=== PATIENT | male | born 1980 | race Caucasian/White ===

== ENCOUNTER 2016-12-27 23:10 | Emergency (ER) | payer SELFPAY ==
[2016-12-28] MEDS ORDERED: NS 0.9% 1000 ML* 2,000 ML IV ONE (00:17)
--- NOTE | 2016-12-28 00:18 | ED ---
GI/ HPI - HPI Summary HPI Summary: 36 male presents to ED with complaints of left sided lower abdominal pain and flank pain that began yesterday and really worsened today around 11pm tonight. Patient states pain is mostly a dull ache 8/10 that worsens causing him to double over at times and up to 10/10. Patient states he was unable to urinate x 4 hours, also experienced pain with attempting to urinate. Was able to give small sample while in ED. Denies obvious blood. Normal bowel movement without blood. No fever/chills. Did have a low left sided back ache yesterday however moved to his flank and left suprapubic area today, worsening. No known trauma or injury. Denies nausea and vomiting. Admits to history of kidney stones 1 year ago and states this feels the exact same. No medications [employer]. No PMHx. Denies genitalia symptoms. - History of Current Complaint Chief Complaint: EDFlankPain Time Seen by Provider: 12/28/16 00:13 Stated Complaint: FLANK PAIN Hx Obtained From: Patient Onset/Duration: Started Days Ago - 1, Still Present, Worse Since Timing: Constant, Intermittent - worsening at times Severity: Moderate Current Severity: Severe Pain Intensity: 10 Location of Pain: LLQ, Suprapubic, Flank - left Pain Characteristics: Sharp, Colicy, Tearing, Aching Pain Radiates to: Flank, RLQ, Inguinal Associated Signs and Symptoms: Positive: Back Pain, Dysuria, Flank Pain Additional Signs & Symptoms: Negative: Penile Swelling, Penile Discharge, Lesions Aggravating Factor(s): Voiding, Urination Alleviating Factor(s): Nothing, Position - sitting up helps somewhat - Images Male Torso: 1 - pain - Risk Factors GI Bleed Risk Factor(s): Negative Testicular Torsion Risk Factor(s): Negative - Allergy/Home Medications Allergies/Adverse Reactions: Allergies Allergy/AdvReac Type Severity Reaction Status Date / Time No Known Allergies Allergy Verified 12/27/16 23:17 PMH/Surg Hx/FS Hx/Imm Hx Endocrine/Hematology History: Denies: Hx Anticoagulant Therapy, Hx Diabetes, Hx Thyroid Disease Cardiovascular History: Denies: Hx Hypertension, Hx Pacemaker/ICD Respiratory History: Denies: Hx Asthma, Hx Chronic Obstructive Pulmonary Disease (COPD) History: Denies: Hx Renal Disease Neurological History: Denies: Hx Dementia, Hx Seizures Psychiatric History: Denies: Hx Substance Abuse - Surgical History Surgery Procedure, Year, and Place: n/a - Immunization History Immunizations Up to Date: Yes Infectious Disease History: No Infectious Disease History: Denies: Hx Hepatitis, Hx Human Immunodeficiency Virus (HIV), Traveled Outside the [place] in Last 30 Days - Family History Known Family History: Positive: None - Social History Alcohol Use: Occasionally Substance Use Type: Reports: None Smoking Status (MU): Unknown if Ever Smoked Review of Systems Constitutional: Negative Cardiovascular: Negative Respiratory: Negative Positive: Abdominal Pain Positive: see HPI, dysuria, flank pain, pain Musculoskeletal: Negative Skin: Negative Neurological: Negative All Other Systems Reviewed And Are Negative: Yes Physical Exam Triage Information Reviewed: Yes Vital Signs On Initial Exam: Initial Vitals Temp Pulse Resp BP Pulse Ox 98.8 F 100 16 153/87 98 12/27/16 23:10 12/27/16 23:10 12/27/16 23:10 12/27/16 23:10 12/27/16 23:10 slightly elevated BP, patient in pain. Vital Signs Reviewed: Yes Appearance: Positive: Well-Appearing, Well-Nourished, Pain Distress - moderate Skin: Positive: Warm, Skin Color Reflects Adequate Perfusion, Dry. Negative: Cold, Tender, Cyanosis @, Jaundiced, Pale, Erythema @ Head/Face: Positive: Normal Head/Face Inspection Eyes: Positive: Conjunctiva Clear ENT: Positive: Hearing grossly normal Neck: Positive: Supple, Nontender Respiratory/Lung Sounds: Positive: Clear to Auscultation, Breath Sounds Present. Negative: Rales, Rhonchi, Wheezes Cardiovascular: Positive: Normal, RRR, Pulses are Symmetrical in both Upper and Lower Extremities. Negative: Murmur, Rub Abdomen Description: Positive: No Organomegaly, Soft, Other: - mildly tender suprapubic area on palpation. Negative: Bruit, CVA Tenderness (R), CVA Tenderness (L), Distended, Guarding, McBurney's Point Tenderness, Peritoneal Signs Bowel Sounds: Positive: Present Male Genital Exam: Positive: normal genitalia - per patient, deferred exam, no symptoms Musculoskeletal: Positive: Normal, Strength/ROM Intact Neurological: Positive: Normal, Sensory/Motor Intact, Alert, Oriented to Person Place, Time, Normal Gait Psychiatric: Positive: Normal Diagnostics - Vital Signs Vital Signs Temp Pulse Resp BP Pulse Ox 12/27/16 23:10 98.8 F 100 16 153/87 98 - Laboratory Result Diagrams: 12/28/16 00:55 12/28/16 00:35 Lab Statement: Any lab studies that have been ordered have been reviewed, and results considered in the medical decision making process. - CT abd/pelvis CT Interpretation: No Acute Changes - nonobstructing right renal stones but no right orleft ureteral stone or urainry trat obstruction. normal appendix, no bowel obstruction. negative for diverticulitis or colitis. no free intreperitoneal air or free fluid. no acute abnormalities of liver, spleen pancreas gallbladder or adrenal galnds. no acute abnormalities are identified. CT Interpretation Completed By: Radiologist Re-Evaluation - Re-Evaluation First Eval Re-Evaluation Time: 13:30 Change: Improved - had significant relief after pain medication for about 15 minutes and then pain returned, will give more pain medication. updated on labs , urine results. Second Eval Re-Evaluation Time: 02:45 Change: Unchanged - still in some pain, without relief. 10/20 however laying comfortably on stretcher. will try dilaudid 1mg then d/c GIGU Course/Dx - Course Course Of Treatment: labs and urinalysis obtained. due to HPI, PE findings and vitals a CT abd/pelvis w/o contrast obtained. urinalyis unremarkable. slightly elevated WBC noted, no left shift. rest of labs unremarkable, normal vitals. patient given fluids and pain management, had relief. CT negative. No concern for other emergent etiology at this time. Aware of worsening signs or symptoms to watch out for. Return if occur or persist. STD cultures obtained and will wait for results. Continue pain management. Follow up PCP. [facility] Reference #: [id number] - Diagnoses Differential Diagnoses - Male: Colitis, Diverticulosis, Renal Calculi, Renal Colic, STD, Testicular Torsion, Ureteral Calculi, Urinary Tract Infection Provider Diagnoses: Abdominal pain - Physician Notifications Discussed Care Of Patient With: Dr Mccall Discharge - Discharge Plan Condition: Stable Disposition: HOME Prescriptions: HYDROcodone/ACETAMIN 5-325 MG* [[place] 5-325 TAB*] 1 tab PO Q4H PRN #5 tab MDD 3 PRN Reason: Pain Patient Education Materials: Abdominal Pain (ED) Referrals: [facility] [place] PH[facility]IAN REFERRAL [Outside] Additional Instructions: You will hear about culture results once received, no call is good news, its usually negative. however if you would like to be sure call ER and ask for results in 2-3 days. Drink plenty of fluids. Pain medication as needed for discomfort. Rest and avoid strenuous physical activity. Follow up with PCP within 5 days. If new or worsening symptoms please seek medical attention promptly, and return.
[2016-12-28 00:33] LABS: Urine Bilirubin Negative (Negative); Urine Glucose Negative (Negative); Urine Nitrite Negative (Negative)
[2016-12-28] MEDS ORDERED: Morphine INJ* 4 MG/ML 1 ML CARPUJECT IV ONE (00:35)
[2016-12-28] MEDS ORDERED: Ondansetron INJ* 2 MG/ML VIAL IV ONE (00:36)
[2016-12-28 01:07] LABS: Albumin 4.4 g/dL (3.2-5.2); BUN/Creatinine Ratio 16.3 (8-20); C Reactive Protein 2.61 mg/L (< 5.00); Calcium 8.7 mg/dL (8.6-10.3); EGFR African American 110.1 (>60); EGFR Non-African American 85.6 (>60); Globulin 2.8 g/dL (2-4); Potassium 3.9 mmol/L (3.5-5.0); Total Bilirubin 0.6 mg/dL (0.2-1.0); Total Protein 7.2 g/dL (6.4-8.9)
[2016-12-28 01:14] LABS: Hematocrit 41 % (42-52); Hemoglobin 14.5 g/dl (14.0-18.0); Mean Corpuscular HGB Conc 35 g/dl (31-36); Mean Corpuscular Hemoglobin 32 pg (27-31); Mean Corpuscular Volume 92 fL (80-94); Mean Platelet Volume 8 um3 (7.4-10.4); Red Blood Count 4.47 10^6/ul (4.0-5.4); Red Cell Distribution Width 13 % (10.5-15); White Blood Count 11.6 10^3/ul (3.5-10.8)
[2016-12-28] MEDS ORDERED: Ketorolac INJ* 30 MG/ML 1 ML VIAL IV PUSH ONE (01:28)
[2016-12-28] MEDS ORDERED: Tamsulosin CAP* 0.4 MG PO ONE (01:28)
[2016-12-28] MEDS ORDERED: HYDROmorphone INJ* 1 MG/ML CARPUJECT SYRINGE IV SLOW PU ONE (02:32)
[2016-12-28 03:08] VITALS: BP 142/81
--- NOTE | 2016-12-28 08:28 | RAD ---
INDICATION: Right flank pain COMPARISON: CT February 11, 2012 TECHNIQUE: Noncontrast axial source images were acquired from the level hemidiaphragms to the symphysis pubis as part of CT imaging for renal stone. Lung bases: The lung bases are clear. Liver: The liver is normal in size. Noncontrast imaging shows no evidence of a hepatic mass or ductal dilatation. Gallbladder: There are no calcified gallstones. There is no evidence of wall thickening or pericholecystic fluid.. Spleen: The spleen is normal in size. The noncontrast CT appearance is normal. Pancreas: Noncontrast imaging shows no pancreatic mass or ductal dilitation. Adrenal glands: No masses are identified. Kidneys/Bladder: There is a 6 mm upper pole right renal calculus and a 2 mm lower pole right renal calculus. There are no other calcifications of urinary significance. There is no evidence of renal obstruction. There is no evidence of renal mass on noncontrast imaging. Adenopathy: There is no evidence of intraperitoneal or retroperitoneal adenopathy. Evaluation is limited without oral contrast. Fluid collections: There are no free or localized fluid collections. Vessels: The aorta and iliac vessels are normal in caliber. There are no significant atherosclerotic changes. The IVC appears normal Pelvic organs: The uterus and adnexa appear normal GI tract: Evaluation of the bowel is limited without oral contrast. The stomach, small bowel, and lower GI tract appear grossly normal. There are no obstructive findings. The appendix is visualized and appears normal. Soft tissues: No soft tissue abnormalities of the extraperitoneal abdomen or pelvis are identified. Osseous structures: There are no acute osseous findings. IMPRESSION: Nonobstructive right-sided nephrolithiasis, otherwise negative.
== END 2016-12-28 03:08 | disposition home or self-care (01) ==
LOC: ED 23:10
DX: R10.32 Left lower quadrant pain (principal); R10.9 Unspecified abdominal pain
CPT/HCPCS: 36415; 74176; 80053; 81003; 83605; 85025; 86140; 96374; 96375; 99283; J1170; J1885; J2270; J2405

== ENCOUNTER 2017-03-14 22:35 | Inpatient (IN) | payer MEDICAID ==
[2017-03-14 23:10] LABS: ABS Basophils 0.1 10^3/ul (0-0.2); ABS Eosinophils 0.2 10^3/ul (0-0.6); ABS Lymphocytes 2.2 10^3/ul (1.0-4.8); ABS Monocytes 0.6 10^3/ul (0-0.8); ABS Neutrophils 6.1 10^3/ul (1.5-7.7); ABS Nucleated RBC 0 10^3/ul; Eosinophil % 1.9 % (0-6); Hematocrit 47 % (42-52); Hemoglobin 16.9 g/dl (14.0-18.0); Mean Corpuscular HGB Conc 36 g/dl (31-36); Mean Corpuscular Hemoglobin 33 pg (27-31); Mean Corpuscular Volume 92 fL (80-94); Mean Platelet Volume 8 um3 (7.4-10.4); Nucleated Red Blood Cells % 0; Platelet Count 227 10^3/ul (150-450); Red Blood Count 5.13 10^6/ul (4.0-5.4); Red Cell Distribution Width 13 % (10.5-15); White Blood Count 9.2 10^3/ul (3.5-10.8)
[2017-03-14 23:26] LABS: EGFR Non-African American 81.7 (>60)
[2017-03-14 23:56] LABS: Urine Appearance Clear; Urine Blood 1+ (Negative); Urine Color Yellow; Urine Ketones Negative (Negative); Urine Protein Negative (Negative); Urine Specific Gravity 1.021 (1.010-1.030); Urine Urobilinogen Negative (Negative)
--- NOTE | 2017-03-15 00:34 | ED ---
Psychiatric Complaint - HPI Summary HPI Summary: 36M presents with suicidal ideation. He states that over the past two weeks that he has been having increased suicidal thought. He states he took a knife to his room and was going to use it so he decided to come here. He has been using cocaine. He admits to insomnia. He states was this suicidal back when was in [facility]. no history of cutting self. not seeing anyone for MH and not on any medication. - History Of Current Complaint Chief Complaint: EDMentalHealth Time Seen by Provider: 03/14/17 23:38 - Allergies/Home Medications Allergies/Adverse Reactions: Allergies Allergy/AdvReac Type Severity Reaction Status Date / Time No Known Allergies Allergy Verified 12/27/16 23:17 PMH/Surg Hx/FS Hx/Imm Hx Endocrine/Hematology History: Denies: Hx Anticoagulant Therapy, Hx Diabetes, Hx Thyroid Disease Cardiovascular History: Denies: Hx Hypertension, Hx Pacemaker/ICD Respiratory History: Denies: Hx Asthma, Hx Chronic Obstructive Pulmonary Disease (COPD) History: Denies: Hx Renal Disease Neurological History: Denies: Hx Dementia, Hx Seizures Psychiatric History: Denies: Hx Substance Abuse - Surgical History Surgery Procedure, Year, and Place: n/a Infectious Disease History: No Infectious Disease History: Denies: Hx Hepatitis, Hx Human Immunodeficiency Virus (HIV), Traveled Outside the [place] in Last 30 Days - Family History Known Family History: Positive: None - Social History Alcohol Use: Daily Substance Use Type: Reports: Cocaine, Other Smoking Status (MU): Heavy Every Day Tobacco Smoker Review of Systems Negative: Fever Negative: Chest Pain Negative: Shortness Of Breath Positive: Depressed All Other Systems Reviewed And Are Negative: Yes Physical Exam Triage Information Reviewed: Yes Vital Signs On Initial Exam: Initial Vitals Temp Pulse Resp BP Pulse Ox 98.7 F 107 18 160/95 97 03/14/17 22:38 03/14/17 22:38 03/14/17 22:38 03/14/17 22:38 03/14/17 22:38 Vital Signs Reviewed: Yes Appearance: Positive: Well-Appearing Skin: Positive: Warm, Dry Head/Face: Positive: Normal Head/Face Inspection Eyes: Positive: Normal, Conjunctiva Clear Respiratory/Lung Sounds: Positive: Clear to Auscultation, Breath Sounds Present Cardiovascular: Positive: Normal, RRR Abdomen Description: Positive: Nontender, Soft Bowel Sounds: Positive: Present Musculoskeletal: Positive: Normal Neurological: Positive: Normal Psychiatric: Positive: Depressed - Jesús Coma Scale Coma Scale Total: 15 Diagnostics - Vital Signs Vital Signs Temp Pulse Resp BP Pulse Ox 03/14/17 22:38 98.7 F 107 18 160/95 97 - Laboratory Lab Results: Lab Results 03/14/17 03/14/17 03/14/17 Range/Units 23:02 23:02 23:42 WBC 9.2 (3.5-10.8) 10^3/ul RBC 5.13 (4.0-5.4) 10^6/ul Hgb 16.9 (14.0-18.0) g/dl Hct 47 (42-52) % MCV 92 (80-94) fL MCH 33 H (27-31) pg MCHC 36 (31-36) g/dl RDW 13 (10.5-15) % Plt Count 227 (150-450) 10^3/ul MPV 8 (7.4-10.4) um3 Neut % (Auto) 66.7 (38-83) % Lymph % (Auto) 24.0 L (25-47) % [place]ois % (Auto) 6.4 (1-9) % Eos % (Auto) 1.9 (0-6) % Baso % (Auto) 1.0 (0-2) % Absolute Neuts (auto) 6.1 (1.5-7.7) 10^3/ul Absolute Lymphs (auto) 2.2 (1.0-4.8) 10^3/ul Absolute Monos (auto) 0.6 (0-0.8) 10^3/ul Absolute Eos (auto) 0.2 (0-0.6) 10^3/ul Absolute Basos (auto) 0.1 (0-0.2) 10^3/ul Absolute Nucleated RBC 0 10^3/ul Nucleated RBC % 0 Sodium 138 (133-145) mmol/L Potassium TNP Chloride 104 (101-111) mmol/L Carbon Dioxide 28 (22-32) mmol/L Anion Gap 6 (2-11) mmol/L BUN 10 (6-24) mg/dL Creatinine 1.02 (0.67-1.17) mg/dL Est GFR ( Amer) 105.1 (>60) Est GFR (Non-Af Amer) 81.7 (>60) BUN/Creatinine Ratio 9.8 (8-20) Glucose 105 H (70-100) mg/dL Calcium 9.2 (8.6-10.3) mg/dL Total Bilirubin 0.40 (0.2-1.0) mg/dL AST TNP ALT 16 (7-52) U/L Alkaline Phosphatase 65 (34-104) U/L Total Protein 7.5 (6.4-8.9) g/dL Albumin 4.5 (3.2-5.2) g/dL Globulin 3.0 (2-4) g/dL Albumin/Globulin Ratio 1.5 (1-3) TSH 2.50 (0.34-5.60) mcIU/mL Urine Color Urine Appearance Urine pH (5-9) Ur Specific Equality (1.010-1.030) Urine Protein (Negative) Urine Ketones (Negative) Urine Blood (Negative) Urine Nitrate (Negative) Urine Bilirubin (Negative) Urine Urobilinogen (Negative) Ur Leukocyte Esterase (Negative) Urine WBC (Auto) (Absent) Urine RBC (Auto) (Absent) Urine Bacteria (Absent) Urine Glucose (Negative) Salicylates < 2.50 (<30) mg/dL Urine Opiates Screen None detected (None Detect) Acetaminophen < 15 mcg/mL Ur Barbiturates Screen None detected (None Detect) Ur Phencyclidine Scrn None detected (None Detect) Ur Amphetamines Screen None detected (None Detect) U Benzodiazepines Scrn None detected (None Detect) Urine Cocaine Screen Presumptive positive H (None Detect) U Cannabinoids Screen None detected (None Detect) Serum Alcohol < 10 (<10) mg/dL 03/14/17 03/15/17 Range/Units 23:42 00:00 WBC (3.5-10.8) 10^3/ul RBC (4.0-5.4) 10^6/ul Hgb (14.0-18.0) g/dl Hct (42-52) % MCV (80-94) fL MCH (27-31) pg MCHC (31-36) g/dl RDW (10.5-15) % Plt Count (150-450) 10^3/ul MPV (7.4-10.4) um3 Neut % (Auto) (38-83) % Lymph % (Auto) (25-47) % [place] % (Auto) (1-9) % Eos % (Auto) (0-6) % Baso % (Auto) (0-2) % Absolute Neuts (auto) (1.5-7.7) 10^3/ul Absolute Lymphs (auto) (1.0-4.8) 10^3/ul Absolute Monos (auto) (0-0.8) 10^3/ul Absolute Eos (auto) (0-0.6) 10^3/ul Absolute Basos (auto) (0-0.2) 10^3/ul Absolute Nucleated RBC 10^3/ul Nucleated RBC % Sodium (133-145) mmol/L Potassium 3.8 Chloride (101-111) mmol/L Carbon Dioxide (22-32) mmol/L Anion Gap (2-11) mmol/L BUN (6-24) mg/dL Creatinine (0.67-1.17) mg/dL Est GFR ( Amer) (>60) Est GFR (Non-Af Amer) (>60) BUN/Creatinine Ratio (8-20) Glucose (70-100) mg/dL Calcium (8.6-10.3) mg/dL Total Bilirubin (0.2-1.0) mg/dL AST 13 ALT (7-52) U/L Alkaline Phosphatase (34-104) U/L Total Protein (6.4-8.9) g/dL Albumin (3.2-5.2) g/dL Globulin (2-4) g/dL Albumin/Globulin Ratio (1-3) TSH (0.34-5.60) mcIU/mL Urine Color Yellow Urine Appearance Clear Urine pH 5.0 (5-9) Ur Specific Equality 1.021 (1.010-1.030) Urine Protein Negative (Negative) Urine Ketones Negative (Negative) Urine Blood 1+ H (Negative) Urine Nitrate Negative (Negative) Urine Bilirubin Negative (Negative) Urine Urobilinogen Negative (Negative) Ur Leukocyte Esterase Negative (Negative) Urine WBC (Auto) Trace(0-5/hpf) (Absent) Urine RBC (Auto) Trace(0-2/hpf) (Absent) Urine Bacteria Absent (Absent) Urine Glucose Negative (Negative) Salicylates (<30) mg/dL Urine Opiates Screen (None Detect) Acetaminophen mcg/mL Ur Barbiturates Screen (None Detect) Ur Phencyclidine Scrn (None Detect) Ur Amphetamines Screen (None Detect) U Benzodiazepines Scrn (None Detect) Urine Cocaine Screen (None Detect) U Cannabinoids Screen (None Detect) Serum Alcohol (<10) mg/dL Result Diagrams: 03/14/17 23:02 03/15/17 00:00 Lab Statement: Any lab studies that have been ordered have been reviewed, and results considered in the medical decision making process. Course/Dx - Course Course Of Treatment: 36M presents with suicidal ideation. He states that over the past two weeks that he has been having increased suicidal thought. He states he took a knife to his room and was going to use it so he decided to come here. He has been using cocaine. He admits to insomnia. He states was this suicidal back when was in [facility]. He is not currently on any medication and does not see anyone for MH. patient is medically clear for MHE. patient signed out to dr hills pending for disposition. - Differential Dx/Clinical Impression Differential Diagnosis/HQI/PQRI: Positive: Anxiety, Depression, Suicidal Ideation, Suicidal Gesture Provider Diagnosis: Depression Discharge - Discharge Plan Condition: Stable Disposition: OTHER Discharge Disposition Comment: signed out to dr hills pending E Referrals: No Primary Care Phys,NOPCP [Primary Care Provider] -
[2017-03-15] MEDS ORDERED: Mouth Piece, Nicotine* 1 EACH CARTRIDGE INH PRN (01:11)
[2017-03-15] MEDS ORDERED: LORazepam TAB(*) 1 MG PO ONE (01:12)
[2017-03-15] MEDS ORDERED: Nicotine Inhaler* 10 MG AMP ONE (01:19)
[2017-03-15] MEDS ORDERED: Mouth Piece, Nicotine* 1 EACH CARTRIDGE ONE ×2 (01:19→12:17)
[2017-03-15] MEDS: Nicotine Inhaler* 10 MG AMP INH PRN ×4 (01:23→21:41)
[2017-03-15] MEDS ORDERED: Mouth Piece, Nicotine* 1 EACH CARTRIDGE INH ONE ×2 (02:00→03:47)
--- NOTE | 2017-03-15 04:28 | ED ---
IPriscilla Gabriel, scribed for Kacy Ashraf MD on 03/15/17 at 0428 . Progress - Progress Note Progress Note: After a MHE the patient was deem unfit to leave and therefore he will be admitted for further observation. - Consult/PCP Time Called: 22:38 Course/Dx - Course Course Of Treatment: 36M presents with suicidal ideation. He states that over the past two weeks that he has been having increased suicidal thought. He states he took a knife to his room and was going to use it so he decided to come here. He has been using cocaine. He admits to insomnia. He states was this suicidal back when was in [facility]. He is not currently on any medication and does not see anyone for MH. patient is medically clear for MHE. patient signed out to dr ashraf pending for disposition. - Diagnoses Provider Diagnoses: Depression, Suicidal ideations The documentation as recorded by the Priscilla duque Gabriel accurately reflects the service I personally performed and the decisions made by me, Kacy Ashraf MD.
[2017-03-15] MEDS ORDERED: Nicotine Inhaler* 10 MG AMP INH PRN (07:30)
[2017-03-15] MEDS ORDERED: Al Hydrox/Mg Hydrox/Simet LIQ* 30 ML UDC PO PRN (07:30)
[2017-03-15] MEDS ORDERED: Acetaminophen TAB* 325 MG PO PRN (07:30)
[2017-03-15] MEDS: Sertraline* 50 MG TAB PO SCH (12:17)
[2017-03-15] MEDS: Gabapentin CAP(*) 300 MG PO SCH ×2 (12:17→21:41)
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
[2017-03-15] MEDS: QUEtiapine TAB* 25 MG PO PRN (21:42)
[2017-03-16] MEDS: Gabapentin CAP(*) 300 MG PO SCH ×3 (08:18→20:08)
[2017-03-16] MEDS: Sertraline* 50 MG TAB PO SCH (08:18)
[2017-03-16] MEDS: Nicotine Inhaler* 10 MG AMP INH PRN ×4 (08:53→20:09)
[2017-03-16] MEDS ORDERED: Nicotine Lozenge* 4 MG LOZENGE MT PRN (12:57)
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
[2017-03-16] MEDS: cloNIDine TAB* 0.1 MG PO PRN (16:08)
[2017-03-16] MEDS: QUEtiapine TAB* 25 MG PO PRN (20:08)
[2017-03-17] MEDS: Sertraline* 50 MG TAB PO SCH (08:32)
[2017-03-17] MEDS: Gabapentin CAP(*) 300 MG PO SCH ×3 (08:32→20:14)
[2017-03-17] MEDS: Nicotine Inhaler* 10 MG AMP INH PRN ×4 (09:21→20:16)
[2017-03-17] MEDS: cloNIDine TAB* 0.1 MG PO PRN ×2 (11:19→17:59)
--- NOTE | 2017-03-17 11:24 | PN ---
[facility]: Group Therapy Note - Service Type Service Type: 22513 Group Psychotherapy - Cognitive Behavioral Group Therapy ( CBT):Patient was attentive and participatory in CBT programming this morning, and remained in good behavioral control. Patient expressed positive insights regarding relevant treatment interventions and goals.
[2017-03-17] MEDS ORDERED: Nicotine PATCH 21 MG/24 HR* PATCH TRANSDERM SCH (15:00)
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
[2017-03-17] MEDS: QUEtiapine TAB* 25 MG PO PRN (20:13)
[2017-03-17] MEDS: Nicotine Patch Removal NOTE PATCH OFF SCH (20:40)
[2017-03-18] MEDS: Sertraline* 50 MG TAB PO SCH (07:56)
[2017-03-18] MEDS: Gabapentin CAP(*) 300 MG PO SCH ×3 (07:56→20:34)
[2017-03-18] MEDS: Nicotine Inhaler* 10 MG AMP INH PRN ×3 (07:56→18:56)
[2017-03-18] MEDS: Nicotine PATCH 21 MG/24 HR* PATCH TRANSDERM SCH (08:15)
[2017-03-18] MEDS: cloNIDine TAB* 0.1 MG PO PRN ×2 (14:51→19:49)
--- NOTE | 2017-03-18 16:24 | PN ---
Subjective - Subjective Date of Service: 03/18/17 Service Type: 73539 Hosp care 15 min low complexity Subjective: Theresa reports of feeling horrible with anxiety and sadness. He now understand his mental health problems better and wants to follow all recommendations. Also wants to stop using D & A to be able to be productive once again. However, without appropriate treatments it looks like an empty promise. Taking meds as prescribed. Objective - Appearance Appearance: Well Developed/Nourished Dysmorphic Features: No Hygiene: Normal Grooming: Disheveled - Behavior Psychomotor Activities: Abnormal-Decreased Exhibits Abnormal Movement: No - Attitude and Relatedness Attitude and Relatedness: Appropriate Eye Contact: Fair - Speech Quality: Unpressured Latencies: Normal Quantity: Appropriate - Mood Patient's Decription of Mood: "Anxious" - Affect Observed Affect: Depressed Affect Consistent with: Dysphoria - Thought Process Patient's Thought Process: Coherent, Goal Directed Thought Content: No Passive Wish, No Suicidal Planning, No Homicidal Ideation, No Paranoid Ideation - Sensorium Experiencing Hallucinations: No, Sensorium is Clear Type of Hallucinations: Visual: No, Auditory: No, Command: No - Level of Consciousness Level of Consciousness: Alert Orientation: Yes Intact, Yes Orientated to Time, Yes Orientated to Place, Yes Orientated to Person - Impulse Control Impulse Control: Intact - Insight and Judgement Insight and Judgement: Poor - Group Participation Particating in Group Activities: No - Medication Management Medication Management Adherence: Yes Assessment - Assessment Merits Inpatient Hospitalization: For Immediate Safety, For Stabilization, For Discharge Planning Inpatient DSM-IV Dx: substance-induced mood d/o; PTSD; panic d/o; alcohol use d/ o; cocaine use d/o; tobacco use d/o Clinical Impression: Not stable enough to be discharged. Plan - Plan Treatment Plan: Name: THERESA TANG Birthdate: 1980 [id number] Continued Medication Management: Continue Outpt Medication Medications: Current Medications Acetaminophen (Tylenol Tab*) 650 mg PO Q4H PRN PRN Reason: PAIN or TEMP > 101 F Al Hydrox/Mg Hydrox/Simethicone (Maalox Plus*) 30 ml PO Q4H PRN PRN Reason: INDIGESTION Clonidine HCl (Catapres Tab*) 0.1 mg PO BID PRN PRN Reason: ANXIETY Last Admin: 03/18/17 14:51 Dose: 0.1 mg Gabapentin (Neurontin Cap(*)) 600 mg PO BEDTIME [facility] Last Admin: 03/17/17 20:14 Dose: 600 mg Gabapentin (Neurontin Cap(*)) 300 mg PO 0900,1200 [facility] Last Admin: 03/18/17 12:22 Dose: 300 mg Nicotine (Nicotine Inhaler*) 10 mg INH Q2H PRN PRN Reason: CRAVING Last Admin: 03/18/17 15:22 Dose: 10 mg Nicotine (Nicotine Patch 21 Mg/24 Hr*) 1 patch TRANSDERM Q24HR [facility] Last Admin: 03/18/17 08:15 Dose: 1 patch Nicotine Polacrilex (Nicotine Lozenge*) 4 mg MT Q2H PRN PRN Reason: CRAVINGS Last Admin: 03/16/17 16:08 Dose: 4 mg Pharmacy Profile Note (Nicotine Patch Removal Note*) 1 note PATCH OFF 2100 [facility] Last Admin: 03/17/17 20:40 Dose: 1 note Quetiapine Fumarate (Seroquel Tab*) 50 mg PO BEDTIME PRN PRN Reason: insomnia Last Admin: 03/17/17 20:13 Dose: 50 mg Sertraline HCl (Zoloft*) 50 mg PO DAILY [facility] Last Admin: 03/18/17 07:56 Dose: 50 mg - Discharge Plan Discharge Plan: Drug/Alcohol Rehab
[2017-03-18] MEDS: QUEtiapine TAB* 25 MG PO PRN (20:34)
[2017-03-18] MEDS: Nicotine Patch Removal NOTE PATCH OFF SCH (21:31)
[2017-03-19] MEDS: Gabapentin CAP(*) 300 MG PO SCH ×3 (08:04→20:28)
[2017-03-19] MEDS: Sertraline* 50 MG TAB PO SCH (08:04)
[2017-03-19] MEDS: Nicotine PATCH 21 MG/24 HR* PATCH TRANSDERM SCH ×2 (08:06→09:10)
[2017-03-19] MEDS: Nicotine Inhaler* 10 MG AMP INH PRN ×4 (08:07→18:52)
[2017-03-19] MEDS: cloNIDine TAB* 0.1 MG PO PRN ×2 (11:28→16:15)
[2017-03-19] MEDS: QUEtiapine TAB* 100 MG PO SCH (20:29)
[2017-03-19] MEDS: Nicotine Patch Removal NOTE PATCH OFF SCH (20:30)
[2017-03-20] MEDS: Gabapentin CAP(*) 300 MG PO SCH ×3 (08:24→20:36)
[2017-03-20] MEDS: Nicotine Inhaler* 10 MG AMP INH PRN ×3 (08:24→20:53)
[2017-03-20] MEDS: Sertraline* 50 MG TAB PO SCH (08:24)
[2017-03-20] MEDS: Nicotine PATCH 21 MG/24 HR* PATCH TRANSDERM SCH (08:25)
[2017-03-20] MEDS ORDERED: Sertraline* 50 MG TAB PO ONE (12:43)
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
[2017-03-20] MEDS: Prazosin CAP* 1 MG PO SCH ×3 (13:14→20:45)
[2017-03-20] MEDS: QUEtiapine TAB* 100 MG PO SCH (20:39)
[2017-03-20] MEDS: Nicotine Patch Removal NOTE PATCH OFF SCH (20:44)
[2017-03-20] MEDS ORDERED: traZODone TAB* 100 MG PO SCH (21:00)
[2017-03-21 08:16] VITALS: BP 119/73
[2017-03-21] MEDS: Prazosin CAP* 1 MG PO SCH ×2 (08:21→20:51)
[2017-03-21] MEDS: Sertraline* 50 MG TAB PO SCH (08:21)
[2017-03-21] MEDS: Gabapentin CAP(*) 300 MG PO SCH ×3 (08:21→20:51)
[2017-03-21] MEDS: Nicotine PATCH 21 MG/24 HR* PATCH TRANSDERM SCH (08:21)
[2017-03-21] MEDS ORDERED: traZODone TAB* 100 MG PO SCH (11:49)
--- NOTE | 2017-03-21 11:56 | PN ---
Subjective - Subjective Service Type: 26693 Hosp care 15 min low complexity Subjective: Patient reports improved mood with mild improvement in anxiety. He states he slept from approx 11pm to 3am then "tossed and turned" until breakfast. He states he woke with a mild migraine which resolved after a dose of acetaminophen. Patient reports intent to follow up with treatment and would like a referral to [facility]. He declines offer of referral for substance use treatment. He states he plans to attend 12-step groups. Objective - Appearance Appearance: Well Developed/Nourished Dysmorphic Features: Yes Hygiene: Normal Grooming: Fairly Well Kept - Behavior Psychomotor Activities: Normal Exhibits Abnormal Movement: No - Attitude and Relatedness Attitude and Relatedness: Cooperative Eye Contact: Good - Speech Quality: Unpressured Latencies: Normal Quantity: Appropriate - Mood Patient's Decription of Mood: "Okay" - Affect Observed Affect: Good Affect Consistent with: Euthymia - Thought Process Patient's Thought Process: Coherent, Goal Directed Thought Content: No Passive Wish, No Suicidal Planning, No Homicidal Ideation, No Paranoid Ideation - Sensorium Experiencing Hallucinations: No, Sensorium is Clear Type of Hallucinations: Visual: No, Auditory: No, Command: No - Level of Consciousness Level of Consciousness: Alert Orientation: Yes Intact, Yes Orientated to Time, Yes Orientated to Place, Yes Orientated to Person - Impulse Control Impulse Control: Tenuous - Insight and Judgement Insight and Judgement: Fair - Group Participation Particating in Group Activities: Yes - Medication Management Medication Management Adherence: Yes Assessment - Assessment Merits Inpatient Hospitalization: For Immediate Safety, For Stabilization, For Discharge Planning Inpatient DSM-IV Dx: substance-induced mood d/o; PTSD; panic d/o; alcohol use d/ o; cocaine use d/o; tobacco use d/o Clinical Impression: 36yo white male with chaotic upbringing and polysubstance use. He presented to ED with reports of significant anxiety and a recent suicidal gesture. He is agreeable to initiate treatment for PTSD. He minimizes substance use and declines offer of referral to outpatient or inpatient treatment. He merits hospitalization for immediate safety, evaluation and stabilization. Plan - Plan Treatment Plan: Name: THERESA TANG Birthdate: 1980 [id number] continue acute intensive psychiatric treatment. increase trazodone. continue observation q30min and allow staff pass. discharge planning to include outpatient referrals. Continued Medication Management: Start Medication Medications: Current Medications Acetaminophen (Tylenol Tab*) 650 mg PO Q4H PRN PRN Reason: PAIN or TEMP > 101 F Last Admin: 03/21/17 08:20 Dose: 650 mg Al Hydrox/Mg Hydrox/Simethicone (Maalox Plus*) 30 ml PO Q4H PRN PRN Reason: INDIGESTION Gabapentin (Neurontin Cap(*)) 600 mg PO BEDTIME [facility] Last Admin: 03/20/17 20:36 Dose: 600 mg Gabapentin (Neurontin Cap(*)) 300 mg PO 0900,1200 [facility] Last Admin: 03/21/17 11:48 Dose: 300 mg Nicotine (Nicotine Inhaler*) 10 mg INH Q2H PRN PRN Reason: CRAVING Last Admin: 03/20/17 20:53 Dose: 10 mg Nicotine (Nicotine Patch 21 Mg/24 Hr*) 1 patch TRANSDERM Q24HR [facility] Last Admin: 03/21/17 08:21 Dose: 1 patch Nicotine Polacrilex (Nicotine Lozenge*) 4 mg MT Q2H PRN PRN Reason: CRAVINGS Last Admin: 03/16/17 16:08 Dose: 4 mg Pharmacy Profile Note (Nicotine Patch Removal Note*) 1 note PATCH OFF 2100 [facility] Last Admin: 03/20/17 20:44 Dose: 1 note Prazosin HCl (Minipress Cap*) 1 mg PO BID [facility] Last Admin: 03/21/17 08:21 Dose: 1 mg Quetiapine Fumarate (Seroquel Tab*) 100 mg PO BEDTIME [facility] Last Admin: 03/20/17 20:39 Dose: 100 mg Sertraline HCl (Zoloft*) 100 mg PO DAILY [facility] Last Admin: 03/21/17 08:21 Dose: 100 mg Trazodone HCl (Desyrel Tab*) 200 mg PO BEDTIME [facility] - Discharge Plan Discharge Plan: Outpatient Follow Up Outpatient Program: [facility]
[2017-03-21] MEDS: Nicotine Inhaler* 10 MG AMP INH PRN ×2 (14:06→18:12)
[2017-03-21] MEDS ORDERED: hydrOXYzine HCL TAB* 50 MG PO PRN (15:42)
[2017-03-21] MEDS: QUEtiapine TAB* 100 MG PO SCH (20:51)
[2017-03-21] MEDS: Nicotine Patch Removal NOTE PATCH OFF SCH (20:54)
[2017-03-22] MEDS: Gabapentin CAP(*) 300 MG PO SCH (08:29)
[2017-03-22] MEDS: Sertraline* 50 MG TAB PO SCH (08:30)
[2017-03-22] MEDS: Prazosin CAP* 1 MG PO SCH (08:31)
[2017-03-22] MEDS: Nicotine Inhaler* 10 MG AMP INH PRN (08:32)
[2017-03-22] MEDS: Nicotine PATCH 21 MG/24 HR* PATCH TRANSDERM SCH (08:32)
[2017-03-22] MEDS: Nicotine Patch Removal NOTE PATCH OFF SCH (10:30)
--- NOTE | 2017-03-22 16:37 | DS ---
CC: [facility] * DATE OF ADMISSION: 03/15/2017. DATE OF DISCHARGE: 03/22/2017. SUPERVISING PSYCHIATRIST: Dr. Rhett May * (dictated by TTAYANA Garcia ). DISCHARGE DIAGNOSES: Major depressive disorder, recurrent with anxious distress ; PTSD; alcohol use disorder; cocaine use disorder; tobacco use disorder. CONDITION AT THE TIME OF DISCHARGE: Improved. The patient is euthymic with congruent affect. He denies suicidal ideation or urges for self-harm. He is denying urges to use alcohol or other substances. He has chosen to accept referral to outpatient mental health at [facility] and agrees to continue mental health counseling. The patient refuses offer for substance use treatment referrals. He states he would like to participate in Alcoholics Anonymous. The patient also identifies need for return to work due to financial responsibilities. Also, the patient states that he wants to volunteer in the community and has plans to do so at the [facility]. The patient reports improved mood and anxiety with current medications and therapeutic skills he has learned while on the unit. He reports readiness for discharge today. MENTAL STATUS EXAM: The patient is a tall, moderately built male who appears stated age. He is well-groomed and dressed in his own clothing. He is euthymic and cooperative. There are no psychomotor abnormalities noted. He is alert and oriented times three. His concentration is good. His memory is 3/3. His mood is good. His affect is congruent. His speech has normal rate, rhythm , and volume. Thought process is logical, goal-directed and coherent. Thought content is negative for suicidal ideation or urges to use substances. His insight is good in that he is voicing urges to remain free from alcohol and continue outpatient mental health services. His judgment is good. Fund of knowledge is excellent. DISCHARGE INSTRUCTIONS GIVEN TO THE PATIENT: A. Medications: Gabapentin 300 mg twice during the day, Gabapentin 600 mg at bedtime; Hydroxyzine 50 mg b.i.d. prn anxiety, itching; Prazosin 1 mg p.o. b.i.d.; Quetiapine 100 mg p.o. at bedtime as needed for sleep; Sertraline 100 mg p.o. daily; Trazodone 200 mg p.o. at bedtime. The above prescriptions were electronically prescribed to [facility] per patient request. B. Diet: Regular. C. Activity: Ambulation as tolerated. The patient declined the offer of tobacco cessation assistance. There are no studies or labs pending at the time of discharge. As stated above, the patient refused the referral for addictions treatment. Social Work has added information about outpatient services available in the discharge instructions. D. Follow-up care: The patient will follow-up with [facility]. He has an intake this Monday at 1:45. The patient now has Medicaid health insurance and is looking forward to identifying providers in the area for health, vision and dental care. E. Substance abuse follow-up: The patient refused the offer of medications to treatment referrals. HOSPITAL COURSE - PART A: Reason for admission: The patient presented to the emergency department voluntarily due to increase in depressed mood and anxiety. He made a suicidal gesture in the presence of his roommate. He was admitted to the Adult Behavioral Services Unit on voluntary status. Code status is full. He was placed on 15 minute checks for safety. The patient was encouraged to participate in supportive milieu, individual sessions with staff, and psychoeducational groups. HOSPITAL COURSE - PART B: Psychiatric treatment rendered: In the emergency department, the patient obtained blood work, including a CBC which was grossly unremarkable. His CMP was within normal limits. TSH was 2.5. Urinalysis was within normal limits. Toxicology was positive for cocaine which was consistent with the patient's report. The patient participated in psychiatric interview. He was mildly irritable. This was likely due to withdrawal from alcohol and cocaine. He was agreeable to a trial of Sertraline for PTSD. He was agreeable to a trial of Gabapentin for alcohol use disorder and anxiety. The patient reported significant difficulty with sleep and agreed to Quetiapine as a soporific. The patient requested HIV and hepatitis testing. This was obtained and found to be nonreactive due to use of Quetiapine which is a second generation antipsychotic. We obtained a hemoglobin A1c which was normal at 4.8 and lipid panel. The patient is noted to have high triglycerides and encouraged to have a low fat diet. The patient completed an MMPI. 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 See full report by psychologist Dr. Bret Lucio. During the beginning of his admission, the patient was noted to pace often. He reported significant anxiety and agitation. He was cooperative with periods of mild irritability. Medications were titrated. Patient reported improvement in anxiety and sleep. As the admission progressed, the patient was increasingly receptive to psychoeducation in regards to PTSD, anxiety, and substance use. His insight improved and he reported intent to refrain from alcohol use and attend AA upon discharge. The patient reported significant fight and natural strains and was increasingly receptive to suggestions for vocational services in the community. At the time of discharge, the patient reports readiness and denied suicidal ideation. He states that he would like to begin to pursue recovery and also identify life changes that he can make. As stated above, the patient was connected with Medicaid navigator and with eligible for Medicaid healthcare. The patient is motivated to obtain healthcare, including vision and dental, and states willingness and capability to pursue these. The patient was safe on all checks. He was in behavioral control. He was decreased to q.30 minute observation and allowed staff pass. Due to the obligation to treat in the least restrictive setting, discharge was agreed upon by treatment team. The patient states eagerness to leave to go to [facility] and apply for food stamps and other social worker aide. Generally, the patient's presentation improved greatly during this admission. As stated above, his insight and judgment were much improved. We hope that Abbe does well in the outpatient setting. RANI ONOFRE NP [id number]/CPS #: [id number] AGUEDA
== END 2017-03-22 11:15 | disposition home or self-care (01) | DRG 753 ==
LOC: ED 22:35 → BSU 03-15 03:47
PROVIDERS: ADMIT Psychiatry & Neurology Psychiatry; ATTEND Psychiatry & Neurology Psychiatry
DX: F33.8 Other recurrent depressive disorders (principal); R45.851 Suicidal ideations; F41.8 Other specified anxiety disorders; F43.10 Post-traumatic stress disorder, unspecified; F10.10 Alcohol abuse, uncomplicated; F14.10 Cocaine abuse, uncomplicated; Y90.0 Blood alcohol level of less than 20 mg/100 ml; F17.210 Nicotine dependence, cigarettes, uncomplicated; Z81.8 Family history of other mental and behavioral disorders
CPT/HCPCS: 36415; 80053; 80061; 80074; 80307; 80320; 80329; 81003; 81015; 83036; 84443; 85025; 86703; 90853; 93005; 99222; 99231; 99232; 99238; A9270-GY; G0480

== ENCOUNTER 2017-04-19 11:56 | Emergency (ER) | payer MEDICAID, OTHER ==
[2017-04-19 12:10] VITALS: BP 131/93
--- NOTE | 2017-04-19 12:18 | UC ---
Respiratory Complaint HPI - HPI Summary HPI Summary: Pt presents with dry cough, right ear pain, sore throat, and fatigue. He tells me that the cough began 5 days ago and he saw his PCP who rx'd tessalon - not helping. Since that time he has developed right ear pain, sore throat, and fatigue. Denies fever, chills, SOB, chest pain, abdominal pain, n/v/d/c. He is still smoking daily - History of Current Complaint Hx Obtained From: Patient Onset/Duration: Gradual Onset Severity Initially: Moderate Severity Currently: Moderate Pain Intensity: 6 Pain Scale Used: 0-10 Numeric Character: Cough: Nonproductive <Morgan Agarwal - Last Filed: 04/19/17 12:47> <Nina Queen - Last Filed: 04/19/17 13:12> - History of Current Complaint Chief Complaint: UCGeneralIllness Stated Complaint: COUGH,SORE THROAT Time Seen by Provider: 04/19/17 12:00 - Allergies/Home Medications Allergies/Adverse Reactions: Allergies Allergy/AdvReac Type Severity Reaction Status Date / Time No Known Allergies Allergy Verified 04/19/17 12:10 Home Medications: Home Medications Gabapentin CAP(*) [Neurontin 300 CAP(*)] 600 mg PO TID 04/19/17 [History Confirmed 04/19/17] PMH/Surg Hx/FS Hx/Imm Hx Previously Healthy: Yes Psychological History: Anxiety, Depression, Bipolar Disorder Other History Of: Negative For: Anticoagulant Therapy - Surgical History Surgical History: None Surgery Procedure, Year, and Place: denies - Family History Known Family History: Positive: None - Social History Occupation: Employed Full-time Alcohol Use: Occasionally Substance Use Type: None Smoking Status (MU): Heavy Every Day Tobacco Smoker Type: Cigarettes Amount Used/How Often: 1 plus pack per day Length of Time of Smoking/Using Tobacco: patient states years Have You Smoked in the Last Year: Yes Cessation Counseling: Counseled 3+Min - 10 Min - Immunization History Most Recent Influenza Vaccination: patient states here in ED approximately 2 weeks ago Most Recent Pneumonia Vaccination: n/a <Morgan Agarwal - Last Filed: 04/19/17 12:47> Review of Systems Constitutional: Fatigue Skin: Negative ENT: Sore Throat, Ear Ache, Nasal Discharge, Sinus Congestion, Sinus Pain/ Tenderness Respiratory: Cough Cardiovascular: Negative Gastrointestinal: Negative Musculoskeletal: Negative Neurological: Negative Psychological: Negative All Other Systems Reviewed And Are Negative: Yes <Morgan Agarwal Last Filed: 04/19/17 12:47> Physical Exam Triage Information Reviewed: Yes Appearance: No Pain Distress, Well-Nourished, Ill-Appearing Vital Signs: Initial Vital Signs Temp 98.6 F 04/19/17 12:05 Pulse 93 04/19/17 12:05 Resp 18 04/19/17 12:05 BP 131/93 04/19/17 12:05 Pulse Ox 98 04/19/17 12:05 Vital Signs Reviewed: Yes Eyes: Positive: Conjunctiva Clear. Negative: Conjunctiva Inflamed, Discharge ENT: Positive: Hearing grossly normal, Pharynx normal, Nasal congestion, Nasal drainage, TM bulging - Right ear, TM red - Right ear, Uvula midline. Negative: Pharyngeal erythema, Tonsillar swelling, Tonsillar exudate, Hoarse voice, Sinus tenderness Neck: Positive: Supple, Nontender, No Lymphadenopathy Respiratory: Positive: Chest non-tender, Lungs clear, Normal breath sounds, No respiratory distress, No accessory muscle use Cardiovascular: Positive: RRR, No Murmur, Pulses Normal Neurological: Positive: Fatigued Psychological: Positive: Age Appropriate Behavior Skin: Negative: rashes <Morgan Agarwal - Last Filed: 04/19/17 12:47> Vital Signs: Initial Vital Signs Temp 98.6 F 04/19/17 12:05 Pulse 93 04/19/17 12:05 Resp 18 04/19/17 12:05 BP 131/93 04/19/17 12:05 Pulse Ox 98 04/19/17 12:05 <Nina Queen - Last Filed: 04/19/17 13:12> Diagnostic Evaluation - Laboratory O2 Sat by Pulse Oximetry: 98 <Morgan Agarwal Last Filed: 04/19/17 12:47> Respiratory Course/Dx - Course Course Of Treatment: Reference #: [id number]. iSTOP ok. Right otitis media. Cough. - Differential Dx/Diagnosis Provider Diagnoses: Right otitis media. Cough <Morgan Agarwal - Last Filed: 04/19/17 12:47> Discharge <Morgan Agarwal - Last Filed: 04/19/17 12:47> <Nina Queen - Last Filed: 04/19/17 13:12> - Discharge Plan Condition: Stable Disposition: HOME Prescriptions: Amoxicillin PO (*) [Amoxicillin 500 MG CAP*] 500 mg PO Q12H #20 cap guaiFENesin/CODIEN 100MG-10MG* [Robitussin AC 100Mg-10Mg*] 5 ml PO BEDTIME PRN # 30 ml MDD 5mL PRN Reason: Cough Patient Education Materials: Ear Infection (ED), Acute Bronchitis (ED) Forms: *Work Release Referrals: Apolinar Adame MD [Primary Care Provider] - Additional Instructions: If you develop a fever, shortness of breath, chest pain, new or worsening symptoms - please call your PCP or go to the ED. Your blood pressure was high at todays visit. Please see your primary provider within 4 weeks for recheck and re-evaluation. Attestation Statement User Type: Provider - I was available for consult. This patient was seen by the PATEL. The patient was not presented to, seen by, or examined by me. Esau <Nina Queen - Last Filed: 04/19/17 13:12>
== END 2017-04-19 13:00 | disposition home or self-care (01) ==
LOC: UCEAST 11:56
DX: H66.91 Otitis media, unspecified, right ear (principal); R05 Cough; F17.210 Nicotine dependence, cigarettes, uncomplicated
CPT/HCPCS: 99212; G0463

== ENCOUNTER 2017-08-30 13:28 | Emergency (ER) | payer MEDICAID ==
[2017-08-30] MEDS ORDERED: NS 0.9% 1000 ML* 1,000 ML IV ONE (14:26)
--- NOTE | 2017-08-30 14:32 | ED ---
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 He has never had a similar episode, and he denies any pain except in his neck. That is more in the paraspinous muscles, not the midline cervical region. - History Of Current Complaint Chief Complaint: EDSyncope Time Seen by Provider: 08/30/17 14:07 Hx Obtained From: Patient, EMS Onset/Duration: Sudden Onset Timing: Seconds Context: Witnessed Activity At Onset: Other - had just walked back to work from lunch Aggravating Factor(s): Nothing Alleviating Factor(s): Nothing Associated Signs And Symptoms: Negative - Allergies/Home Medications Allergies/Adverse Reactions: Allergies Allergy/AdvReac Type Severity Reaction Status Date / Time No Known Allergies Allergy Verified 08/30/17 13:49 Home Medications: Home Medications Sertraline* [Zoloft*] 100 mg PO BID 08/30/17 [History Confirmed 08/30/17] clonazePAM TAB(*) [KlonoPIN TAB(*)] 0.5 mg PO DAILY PRN 08/30/17 [History Confirmed 08/30/17] PMH/Surg Hx/FS Hx/Imm Hx Endocrine/Hematology History: Denies: Hx Anticoagulant Therapy, Hx Diabetes, Hx Thyroid Disease Cardiovascular History: Denies: Hx Hypertension, Hx Pacemaker/ICD Respiratory History: Denies: Hx Asthma, Hx Chronic Obstructive Pulmonary Disease (COPD) GI History: Denies: Hx Ulcer History: Denies: Hx Renal Disease Sensory History: Denies: Hx Contacts or Glasses, Hx Hearing Aid Opthamlomology History: Denies: Hx Contacts or Glasses Neurological History: Denies: Hx Dementia, Hx Seizures Psychiatric History: Reports: Hx Anxiety - patient states hx of anxiety d/o, Hx Substance Abuse - urine drug screen is positive for cocaine Denies: Hx Eating Disorder - Surgical History Surgery Procedure, Year, and Place: denies Infectious Disease History: No Infectious Disease History: Denies: Hx Hepatitis, Hx Human Immunodeficiency Virus (HIV), Hx of Known/ Suspected MRSA, Hx Shingles, Hx Tuberculosis, History Other Infectious Disease, Traveled Outside the [place] in Last 30 Days - Family History Known Family History: Positive: None - Social History Occupation: Employed 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-time - 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 [employer] Alcohol Use: Occasionally Substance Use Type: Reports: None Hx Tobacco Use: Yes - 1 ppd Smoking Status (MU): Heavy Every Day Tobacco Smoker Type: Cigarettes Amount Used/How Often: 1 plus pack per day Have You Chewed or Dipped Tobacco in the LAST YEAR: No Length of Time of Smoking/Using Tobacco: patient states years Have You Smoked in the Last Year: Yes Cigarettes Packs Per Day: 1 Review of Systems Constitutional: Negative Eyes: Negative ENT: Negative Cardiovascular: Negative Respiratory: Negative Gastrointestinal: Negative Genitourinary: Negative Musculoskeletal: Negative Skin: Negative Neurological: Negative Psychological: Normal All Other Systems Reviewed And Are Negative: Yes Physical Exam Triage Information Reviewed: Yes Vital Signs On Initial Exam: Initial Vitals Temp Pulse Resp BP Pulse Ox 97.6 F 95 20 124/77 96 08/30/17 13:32 08/30/17 13:32 08/30/17 13:32 08/30/17 13:32 08/30/17 13:32 Appearance: Positive: Well-Appearing Skin: Positive: Warm Head/Face: Positive: Normal Head/Face Inspection Eyes: Positive: Normal, Other: - Pupils 3-4 mm, ERRL ENT: Positive: Normal ENT inspection, Hearing grossly normal, Pharynx normal Neck: Positive: Supple Respiratory/Lung Sounds: Positive: Clear to Auscultation Cardiovascular: Positive: Normal, RRR, Pulses are Symmetrical in both Upper and Lower Extremities, S1, S2 Abdomen Description: Positive: Nontender Bowel Sounds: Positive: Present Musculoskeletal: Positive: Normal, Strength/ROM Intact Neurological: Positive: Normal, Sensory/Motor Intact, Alert, Oriented to Person Place, Time, CN Intact II-III, Reflexes Intact - Jesús Coma Scale Best Eye Response: 4 - Spontaneous Best Motor Response: 6 - Obeys Commands Best Verbal Response: 5 - Oriented Coma Scale Total: 15 Diagnostics - Vital Signs Vital Signs Temp Pulse Resp BP Pulse Ox 08/30/17 13:32 97.6 F 95 20 124/77 96 - Laboratory Result Diagrams: 08/30/17 14:53 08/30/17 14:53 Lab Statement: Any lab studies that have been ordered have been reviewed, and results considered in the medical decision making process. Re-Evaluation - Re-Evaluation Second Eval Re-Evaluation Time: 15:33 - Feeling better after 1000 ml NS Change: Improved - Comfortable going home. Course/Dx Course Of Treatment: Feeling better after 1000 ml NS IV. Comfortable canceling head CT. Wants to go back to work tomorrow. - Diagnoses Differential Diagnosis/HQI/PQRI: Positive: Cerebral Vascular Accident, Coronary Artery Disease, Dysrhythmia, Hypovolemia, Seizure Provider Diagnoses: Syncope, non cardiac Discharge - Sign-Out/Discharge Documenting (check all that apply): Discharge/Admit/Transfer - Discharge Plan Condition: Good Disposition: HOME Patient Education Materials: Syncope (ED) Referrals: Apolinar Adame MD [Medical Doctor] - - Billing Disposition and Condition Condition: GOOD Disposition: Home
[2017-08-30 15:06] LABS: ABS Basophils 0.1 10^3/ul (0-0.2); ABS Eosinophils 0.2 10^3/ul (0-0.6); ABS Lymphocytes 2.7 10^3/ul (1.0-4.8); ABS Monocytes 0.6 10^3/ul (0-0.8); ABS Nucleated RBC 0 10^3/ul; Eosinophil % 2.4 % (0-6); Hematocrit 40 % (42-52); Hemoglobin 14.8 g/dl (14.0-18.0); Lymphocyte % 27.6 % (25-47); Mean Corpuscular HGB Conc 37 g/dl (31-36); Mean Corpuscular Hemoglobin 34 pg (27-31); Mean Corpuscular Volume 91 fL (80-94); Mean Platelet Volume 8.5 um3 (7.4-10.4); Nucleated Red Blood Cells % 0.1; Platelet Count 225 10^3/ul (150-450); Red Cell Distribution Width 13 % (10.5-15); White Blood Count 9.6 10^3/ul (3.5-10.8)
[2017-08-30 15:25] LABS: EGFR Non-African American 85.6 (>60)
[2017-08-30 15:42] LABS: Urine Appearance Clear; Urine Blood 1+ (Negative); Urine Color Yellow; Urine Ketones Negative (Negative); Urine Protein Negative (Negative); Urine Specific Gravity 1.019 (1.010-1.030); Urine Urobilinogen Negative (Negative)
[2017-08-30 16:04] VITALS: BP 139/90
== END 2017-08-30 16:03 | disposition home or self-care (01) ==
LOC: ED 13:28
DX: R55 Syncope and collapse (principal); F41.9 Anxiety disorder, unspecified; F17.210 Nicotine dependence, cigarettes, uncomplicated
CPT/HCPCS: 36415; 80053; 80307; 81003; 81015; 83605; 83735; 84443; 84484; 85025; 93005; 96360; 99282

== ENCOUNTER 2017-09-21 17:02 | Emergency (ER) | payer MEDICAID, OTHER ==
[2017-09-21 17:12] VITALS: BP 139/89
[2017-09-21] MEDS ORDERED: Lidocaine 2% PF * 5 ML VIAL INJ ONE (17:13)
--- NOTE | 2017-09-21 17:14 | UC ---
Skin Complaint HPI - HPI Summary HPI Summary: 36 yo male presents with right thigh abscess for the last 2-3 days getting progressively worse. He tells me that he has a history of scattered abscess on his body and has them lanced frequently. Denies fever, chills, or hx of MRSA. - History of Current Complaint Chief Complaint: UCSkin Time Seen by Provider: 09/21/17 17:13 Stated Complaint: WOUND ON THIGH Hx Obtained From: Patient Onset/Duration: Gradual Onset Skin Exposure Onset/Duration: Hours Ago Onset Severity: Moderate Current Severity: Severe Pain Intensity: 10 Pain Scale Used: 0-10 Numeric - Allergy/Home Medications Allergies/Adverse Reactions: Allergies Allergy/AdvReac Type Severity Reaction Status Date / Time No Known Allergies Allergy Verified 09/21/17 17:12 Review of Systems Constitutional: Negative Skin: Other - Abscess right thigh Respiratory: Negative Cardiovascular: Negative Neurovascular: Negative Neurological: Negative Psychological: Negative All Other Systems Reviewed And Are Negative: Yes PMH/Surg Hx/FS Hx/Imm Hx - Additional Past Medical History Additional PMH: None Previously Healthy: Yes Other History Of: Negative For: Anticoagulant Therapy - Surgical History Surgical History: None Surgery Procedure, Year, and Place: denies - Family History Known Family History: Positive: None - Social History Alcohol Use: Occasionally Substance Use Type: None Smoking Status (MU): Heavy Every Day Tobacco Smoker Type: Cigarettes Amount Used/How Often: 1 plus pack per day Length of Time of Smoking/Using Tobacco: patient states years Have You Smoked in the Last Year: Yes - Immunization History Most Recent Influenza Vaccination: patient states here in ED approximately 2 weeks ago Most Recent Pneumonia Vaccination: n/a Physical Exam - Summary Physical Exam Summary: GENERAL: NAD. WDWN. No pain distress. SKIN: RIGHT inner thigh: abscess 1.5cm in size. Mild induration and erythema. Moderately TTP. No streaking, bleeding, or drainage. NECK: Supple. Nontender. No lymphadenopathy. CHEST: No accessory muscle use. Breathing comfortably and in no distress. CV: Pulses intact NEURO: Alert. CN II-XII grossly intact. PSYCH: Age appropriate behavior. Triage Information Reviewed: Yes Vital Signs: Initial Vital Signs Temp 99.1 F 09/21/17 17:08 Pulse 101 09/21/17 17:08 Resp 16 09/21/17 17:08 BP 139/89 09/21/17 17:08 Pulse Ox 97 09/21/17 17:08 Course/Dx - Course Course Of Treatment: A time out was performed, witnessed, and signed. The area was cleansed with an alcohol pad. 3mL of 2% lidocaine without epi was administered and good anesthetization was achieved. A #11 blade was used to incise the central most part of the abscess. Copious purulent matter was able to be expressed. The wound was bandaged with gauze. Pt tolerated procedure well. A culture was obtained and will be sent. iSTOP: Reference #: [id number] - Diagnoses Provider Diagnoses: Abscess right medial thigh Procedures - Incision and Drainage Right Medial Proximal Thigh Anesthesia: Local - 2% lido without epi Instrument(s): Scalpel - #11 Packing: Other - None Discharge - Sign-Out/Discharge Documenting (check all that apply): Patient Departure - Discharge Plan Condition: Stable Disposition: HOME Prescriptions: HYDROcodone/ACETAMIN 5-325 MG* [[place] 5-325 TAB*] 1 tab PO Q8H PRN #9 tab MDD 3 PRN Reason: Pain Sulfamethox/Trimethoprim DS* [Bactrim DS 800/160 TAB*] 1 tab PO BID #14 tab Patient Education Materials: Abscess (ED) Referrals: No Primary Care Phys,NOPCP [Primary Care Provider] - Additional Instructions: If you develop a fever, shortness of breath, chest pain, new or worsening symptoms - please call your PCP or go to the ED. Your blood pressure was high at todays visit. Please see your primary provider within 4 weeks for recheck and re-evaluation. 1) Change the dressing daily until well healed - Billing Disposition and Condition Condition: STABLE Disposition: Home
[2017-09-21] MEDS ORDERED: Lidocaine 2% PF * 5 ML VIAL ONE (17:17)
== END 2017-09-21 17:45 | disposition home or self-care (01) ==
LOC: UCEAST 17:02
DX: L02.415 Cutaneous abscess of right lower limb (principal); F17.210 Nicotine dependence, cigarettes, uncomplicated
CPT/HCPCS: 10060; 87070; 87205; 87640; 87641; 99212; G0463

== ENCOUNTER 2018-01-16 22:40 | Emergency (ER) | payer MEDICAID, OTHER ==
[2018-01-16] MEDS ORDERED: Ketorolac INJ* 30 MG/ML 1 ML VIAL IV PUSH ONE (23:06)
[2018-01-16] MEDS ORDERED: Acetaminophen TAB* 325 MG PO ONE (23:07)
--- NOTE | 2018-01-16 23:09 | ED ---
HPI Chest Pain - HPI Summary HPI Summary: This patient is a 37 year old M presenting to [facility] with a chief complaint of intermittent substernal chest pain since a few weeks ago. Patient notes that the pain worsened since 1 day ago. The patient rates the pain 5/10 in severity. Symptoms aggravated by cough. Symptoms alleviated by nothing. Patient reports loss of voice, diarrhea, and cough. Patient reports JOYCE since 1 day ago. Patient denies fever or sore throat. - History of Current Complaint Chief Complaint: EDChestPainROMI Time Seen by Provider: 01/16/18 22:55 Hx Obtained From: Patient Onset/Duration: Started Weeks Ago, Atraumatic, Still Present Timing: Intermittent Initial Severity: Mild Current Severity: Mild Pain Intensity: 5 Pain Scale Used: 0-10 Numeric Chest Pain Location: Discrete at: - substernal Chest Pain Radiates: No Aggravating Factor(s): Other: - cough Alleviating Factor(s): Nothing Associated Signs and Symptoms: Positive: Chest Pain, Headaches, Cough, Nonproductive Cough, Hoarseness, Other: - positive diarrhea, negative sore throat. Negative: Fever - Additional Pertinent History Primary Care Physician: [id number] - Allergy/Home Medications Allergies/Adverse Reactions: Allergies Allergy/AdvReac Type Severity Reaction Status Date / Time No Known Allergies Allergy Verified 09/21/17 17:12 Home Medications: Home Medications NK [No Home Medications Reported] 01/16/18 [History Confirmed 01/16/18] PMH/Surg Hx/FS Hx/Imm Hx Endocrine/Hematology History: Denies: Hx Anticoagulant Therapy, Hx Diabetes, Hx Thyroid Disease Cardiovascular History: Denies: Hx Hypertension, Hx Pacemaker/ICD Respiratory History: Denies: Hx Asthma, Hx Chronic Obstructive Pulmonary Disease (COPD) GI History: Denies: Hx Ulcer History: Denies: Hx Renal Disease Sensory History: Denies: Hx Contacts or Glasses, Hx Hearing Aid Opthamlomology History: Denies: Hx Contacts or Glasses Neurological History: Denies: Hx Dementia, Hx Seizures Psychiatric History: Reports: Hx Anxiety - patient states hx of anxiety d/o, Hx Substance Abuse - urine drug screen is positive for cocaine Denies: Hx Eating Disorder - Surgical History Surgery Procedure, Year, and Place: denies Infectious Disease History: No Infectious Disease History: Denies: Hx Hepatitis, Hx Human Immunodeficiency Virus (HIV), Hx of Known/ Suspected MRSA, Hx Shingles, Hx Tuberculosis, History Other Infectious Disease, Traveled Outside the [place] in Last 30 Days - Pt [facility] - Family History Known Family History: Positive: None - patient denies relevant FHx Negative: Hypertension - Social History Alcohol Use: Occasionally Substance Use Type: Reports: None Hx Tobacco Use: Yes - 1 ppd Smoking Status (MU): Heavy Every Day Tobacco Smoker Type: Cigarettes Amount Used/How Often: 1 plus pack per day Length of Time of Smoking/Using Tobacco: patient states years Have You Smoked in the Last Year: Yes Review of Systems Negative: Fever ENT: Other - hoarseness Negative: Sore Throat Positive: Chest Pain Positive: Cough Positive: Diarrhea Positive: Headache All Other Systems Reviewed And Are Negative: Yes Physical Exam - Summary Physical Exam Summary: VITAL SIGNS: Reviewed. GENERAL: Patient is a well-developed and nourished MALE who is lying comfortable in the stretcher. Patient is not in any acute respiratory distress. HEAD AND FACE: No signs of trauma. No ecchymosis, hematomas or skull depressions. No sinus tenderness. EYES: PERRLA, EOMI x 2, No injected conjunctiva, no nystagmus. EARS: Hearing grossly intact. Ear canals and tympanic membranes are within normal limits. MOUTH: Oropharynx within normal limits. Mild hoarseness NECK: Supple, trachea is midline, no adenopathy, no JVD, no carotid bruit, no c- spine tenderness, neck with full ROM. CHEST: Symmetric, tenderness over mid-chest LUNGS: Clear to auscultation bilaterally. No wheezing or crackles. CVS: Regular rate and rhythm, S1 and S2 present, no murmurs or gallops appreciated. ABDOMEN: Soft, non-tender. No signs of distention. No rebound no guarding, and no masses palpated. Bowel sounds are normal. EXTREMITIES: FROM in all major joints, no edema, no cyanosis or clubbing. NEURO: Alert and oriented x 3. No acute neurological deficits. Speech is normal and follows commands. SKIN: Dry and warm Triage Information Reviewed: Yes Vital Signs On Initial Exam: Initial Vitals Temp Pulse Resp BP Pulse Ox 98.5 F 98 18 157/105 97 01/16/18 22:44 01/16/18 22:44 01/16/18 22:44 01/16/18 22:44 11/06/18 22:44 Vital Signs Reviewed: Yes Diagnostics - Vital Signs Vital Signs Temp Pulse Resp BP Pulse Ox 01/16/18 22:44 98.5 F 98 18 157/105 97 - Laboratory Result Diagrams: 01/16/18 23:24 01/16/18 23:24 Lab Statement: Any lab studies that have been ordered have been reviewed, and results considered in the medical decision making process. - Radiology CXR Radiology Interpretation Completed By: ED Physician - Dr. Ashraf, pending official report Summary of Radiographic Findings: No acute process - EKG 00:12 Cardiac Rate: NL - at 82 bpm EKG Rhythm: Sinus Rhythm ST Segment: Normal Ectopy: None Summary of EKG Findings: NSR at 82 bpm with nml axis, nml intervals, and no ischemic changes. Chest Pain Course/Dx - Course Course Of Treatment: This patient is a 37 year old M presenting to [facility] with a chief complaint of intermittent substernal chest pain since a few weeks ago. Patient reports hoarseness, diarrhea, JOYCE, and cough. An EKG reveals NSR at 82 bpm with nml axis, nml intervals, and no ischemic changes. CXR reveals no acute process. Test results with no significant abnormalities. In the ED course the patient was given Toradol and Tylenol. Patient will be discharged with follow up from PCP. The patient is agreeable with this plan. - Diagnoses Provider Diagnoses: Viral syndrome Discharge - Sign-Out/Discharge Documenting (check all that apply): Patient Departure - discharge home - Discharge Plan Condition: Stable Disposition: HOME Patient Education Materials: Viral Syndrome (ED) Referrals: [facility] [Outside] - 2 Days Additional Instructions: Follow up with primary care physician in 2-3 days. Return to the emergency department with any new or worsening symptoms. - Attestation Statements Document Initiated by Scribe: Yes Documenting Scribe: Evelyn Chin Provider For Whom Scribe is Documenting (Include Credential): Kacy Ashraf MD Scribe Attestation: Evelyn Forman, scribed for Kacy Ashraf MD on 01/17/18 at 0215.
[2018-01-16 23:39] LABS: ABS Basophils 0.1 10^3/ul (0-0.2); ABS Eosinophils 0.2 10^3/ul (0-0.6); ABS Lymphocytes 3.1 10^3/ul (1.0-4.8); ABS Monocytes 0.7 10^3/ul (0-0.8); ABS Neutrophils 5.6 10^3/ul (1.5-7.7); ABS Nucleated RBC 0 10^3/ul; Eosinophil % 1.7 % (0-6); Hematocrit 41 % (42-52); Hemoglobin 14.4 g/dl (14.0-18.0); Lymphocyte % 32.1 % (25-47); Mean Corpuscular HGB Conc 36 g/dl (31-36); Mean Corpuscular Hemoglobin 32 pg (27-31); Mean Corpuscular Volume 90 fL (80-94); Nucleated Red Blood Cells % 0; Platelet Count 233 10^3/ul (150-450); Red Cell Distribution Width 13 % (10.5-15); White Blood Count 9.5 10^3/ul (3.5-10.8)
[2018-01-16 23:51] LABS: INR 0.92 (0.77-1.02)
[2018-01-17 00:01] LABS: EGFR Non-African American 88.3 (>60)
[2018-01-17] MEDS ORDERED: Potassium Chlor TAB* 20 MEQ TAB.ER PO ONE ×2 (01:14→02:06)
[2018-01-17 02:37] VITALS: BP 120/92
== END 2018-01-17 02:36 | disposition home or self-care (01) ==
LOC: ED 22:40
DX: B34.9 Viral infection, unspecified (principal); F17.210 Nicotine dependence, cigarettes, uncomplicated
CPT/HCPCS: 36415; 71045; 80053; 82550; 83735; 84484; 85025; 85610; 85730; 87651; 93005; 96374; 99283; A9270-GY; J1885

== ENCOUNTER 2018-01-18 05:54 | Inpatient (IN) | payer MEDICAID ==
--- NOTE | 2018-01-18 06:17 | ED ---
Psychiatric Complaint - HPI Summary HPI Summary: Pt. is a 37 y.o male who presents to the ER for a MHE. Pt. states he has been having thoughts of suicide over the last few months. Pt. states he has been admitted to [facility] in the past for similar sxs. Pt. states he use to be on medication but stopped a few months ago. Pt. denies suicidal attempts recently. When pt. asked if he has a suicidal plan he states "anything will do at this point." Pt. denies drug use. Admits to 2 beers yesterday but is not a daily drinker. Pt. was seen in ED 2 days ago for URI sxs an diarrhea, pt. states those sxs are improving. Otherwise denies past medical hx. Sxs are moderate in severity. No current modifying factors. - History Of Current Complaint Chief Complaint: EDMentalHealth Time Seen by Provider: 01/18/18 06:10 Hx Obtained From: Patient - Allergies/Home Medications Allergies/Adverse Reactions: Allergies Allergy/AdvReac Type Severity Reaction Status Date / Time No Known Allergies Allergy Verified 01/18/18 06:01 Home Medications: Home Medications NK [No Home Medications Reported] 01/18/18 [History Confirmed 01/18/18] PMH/Surg Hx/FS Hx/Imm Hx Previously Healthy: Yes Endocrine/Hematology History: Denies: Hx Anticoagulant Therapy, Hx Diabetes, Hx Thyroid Disease Cardiovascular History: Denies: Hx Hypertension, Hx Pacemaker/ICD Respiratory History: Denies: Hx Asthma, Hx Chronic Obstructive Pulmonary Disease (COPD) GI History: Denies: Hx Ulcer History: Denies: Hx Renal Disease Sensory History: Denies: Hx Contacts or Glasses, Hx Hearing Aid Opthamlomology History: Denies: Hx Contacts or Glasses Neurological History: Denies: Hx Dementia, Hx Seizures Psychiatric History: Reports: Hx Anxiety - patient states hx of anxiety d/o, Hx Substance Abuse - urine drug screen is positive for cocaine Denies: Hx Eating Disorder - Surgical History Surgery Procedure, Year, and Place: denies Infectious Disease History: No Infectious Disease History: Reports: Traveled Outside the [place] in Last 30 Days Denies: Hx Hepatitis, Hx Human Immunodeficiency Virus (HIV), Hx of Known/ Suspected MRSA, Hx Shingles, Hx Tuberculosis, History Other Infectious Disease - Family History Known Family History: Positive: None - patient denies relevant FHx Negative: Hypertension - Social History Occupation: Employed Full-time Lives: Alone Alcohol Use: Occasionally Substance Use Type: Reports: None Hx Tobacco Use: Yes - 1 ppd Smoking Status (MU): Heavy Every Day Tobacco Smoker Type: Cigarettes Amount Used/How Often: 1 plus pack per day Length of Time of Smoking/Using Tobacco: patient states years Have You Smoked in the Last Year: Yes Review of Systems Constitutional: Negative Negative: Fever, Chills Positive: Sore Throat Cardiovascular: Negative Respiratory: Negative Positive: Diarrhea. Negative: Abdominal Pain, Vomiting Musculoskeletal: Negative Skin: Negative Positive: Headache Positive: Depressed, Other - SI All Other Systems Reviewed And Are Negative: Yes Physical Exam Triage Information Reviewed: Yes Vital Signs On Initial Exam: Initial Vitals Temp Pulse Resp BP Pulse Ox 98.1 F 97 18 164/97 99 01/18/18 05:56 01/18/18 05:56 01/18/18 05:56 01/18/18 05:56 01/18/18 05:56 Vital Signs Reviewed: Yes Appearance: Positive: Well-Appearing - Pt. sitting on bed in NAD. Skin: Positive: Warm, Dry Head/Face: Positive: Normal Head/Face Inspection Eyes: Positive: Normal, EOMI, Conjunctiva Clear Neck: Positive: Supple Respiratory/Lung Sounds: Positive: Clear to Auscultation, Breath Sounds Present Cardiovascular: Positive: Normal, RRR Neurological: Positive: Normal, CN Intact II-III Psychiatric: Positive: Depressed Diagnostics - Vital Signs Vital Signs Temp Pulse Resp BP Pulse Ox 01/18/18 05:56 98.1 F 97 18 164/97 99 - Laboratory Result Diagrams: 01/18/18 06:27 01/18/18 06:27 Lab Statement: Any lab studies that have been ordered have been reviewed, and results considered in the medical decision making process. Course/Dx - Course Course Of Treatment: Pt. presenting for MHE for SI. Basic workup ordered. 1:1 watch given active SI. Labs are unremarkable. U/A shows small RBCs without signs of infection. Pt. medically cleared for MHE. 1027: Pt. has been accepted to the [facility] under voluntary admission. - Differential Dx/Clinical Impression Differential Diagnosis/HQI/PQRI: Positive: Acute Psychosis, Alcohol Intoxication , Anxiety, Bipolar Disorder, Depression, Suicidal Ideation Provider Diagnosis: Suicidal ideations Discharge - Sign-Out/Discharge Documenting (check all that apply): Patient Departure - Discharge Plan Condition: Stable Disposition: [facility] [place] - Billing Disposition and Condition Condition: STABLE Disposition: Psychiatric Facility [facility]
[2018-01-18 06:52] LABS: ABS Basophils 0.1 10^3/ul (0-0.2); ABS Eosinophils 0.2 10^3/ul (0-0.6); ABS Monocytes 0.6 10^3/ul (0-0.8); ABS Nucleated RBC 0 10^3/ul; Eosinophil % 2.1 % (0-6); Hematocrit 41 % (42-52); Hemoglobin 14.4 g/dl (14.0-18.0); Lymphocyte % 33.8 % (25-47); Mean Corpuscular HGB Conc 35 g/dl (31-36); Mean Corpuscular Hemoglobin 32 pg (27-31); Mean Corpuscular Volume 90 fL (80-94); Mean Platelet Volume 8.4 fL (7.4-10.4); Nucleated Red Blood Cells % 0.1; Platelet Count 240 10^3/ul (150-450); Red Blood Count 4.51 10^6/ul (4.00-5.40); Red Cell Distribution Width 13 % (10.5-15); White Blood Count 8.7 10^3/ul (3.5-10.8)
[2018-01-18 07:09] LABS: Urine Appearance Clear; Urine Blood 2+ (Negative); Urine Color Yellow; Urine Ketones Negative (Negative); Urine Protein Negative (Negative); Urine Red Blood Cell 1+(3-5/hpf) (Absent); Urine Urobilinogen Negative (Negative); Urine White Blood Cell Trace(0-5/hpf) (Absent)
[2018-01-18 07:13] LABS: EGFR Non-African American 92.8 (>60)
[2018-01-18] MEDS ORDERED: Nicotine Inhaler* 10 MG AMP INH PRN (10:27)
[2018-01-18] MEDS ORDERED: Al Hydrox/Mg Hydrox/Simet LIQ* 30 ML UDC PO PRN (10:27)
[2018-01-18] MEDS ORDERED: Nicotine GUM* 2 MG PO PRN (10:27)
[2018-01-18] MEDS ORDERED: Acetaminophen TAB* 325 MG PO PRN (10:27)
[2018-01-18] MEDS ORDERED: hydrOXYzine HCL TAB* 50 MG PO PRN (10:29)
[2018-01-18] MEDS ORDERED: traZODone TAB* 50 MG TAB PO PRN (10:29)
[2018-01-18] MEDS ORDERED: Mouth Piece, Nicotine* 1 EACH CARTRIDGE ONE (14:21)
[2018-01-18] MEDS ORDERED: Nicotine Patch Removal NOTE FOLLOW UP SCH (21:00)
[2018-01-18] MEDS ORDERED: QUEtiapine TAB* 100 MG PO SCH (21:00)
[2018-01-19] MEDS: Nicotine PATCH 21 MG/24 HR* PATCH TRANSDERM SCH ×2 (07:35→11:08)
[2018-01-19 07:40] VITALS: BP 120/75
[2018-01-19] MEDS ORDERED: Vitamin THERAPEUTIC TAB PO SCH (09:00)
[2018-01-19] MEDS ORDERED: Sertraline* 50 MG TAB PO ONE (10:20)
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
[2018-01-20] MEDS ORDERED: Sertraline* 100 MG TAB PO SCH (09:00)
== END 2018-01-19 12:30 | disposition home or self-care (01) | DRG 754 ==
LOC: ED 05:54 → BSU 10:27
PROVIDERS: ADMIT Psychiatry & Neurology Psychiatry; ATTEND Psychiatry & Neurology Psychiatry
DX: F32.9 Major depressive disorder, single episode, unspecified (principal); R45.851 Suicidal ideations; F43.10 Post-traumatic stress disorder, unspecified; F41.9 Anxiety disorder, unspecified; F17.210 Nicotine dependence, cigarettes, uncomplicated; Z81.8 Family history of other mental and behavioral disorders; Z72.89 Other problems related to lifestyle
CPT/HCPCS: 36415; 80053; 80307; 80320; 80329; 81003; 81015; 84443; 85025; 87086; 99238; 99284; A9270-GY; G0480

== ENCOUNTER 2019-01-31 13:00 | Emergency (ER) | payer OTHER ==
[2019-01-31 13:31] VITALS: BP 134/96
--- NOTE | 2019-01-31 13:58 | UC ---
[facility] Dental HPI - HPI Summary HPI Summary: Patient is a 38-year-old male presenting with right upper dental pain 3 days that has gradually worsened. States pain now radiates to his right ear and right side of his throat. Notes pain is throbbing and 10/10. States " it hurts just to talk." Denies purulent drainage and bleeding. Denies swelling. Denies fever and chills. Notes some nausea. Denies vomiting. Patient states he has dentist appointment on Monday next week. - History of Current Complaint Chief Complaint: UCDentalProblem Stated Complaint: DENTAL PAIN Hx Obtained From: Patient Onset/Duration: Gradual Onset, Lasting Days Severity: Severe Pain Intensity: 10 Pain Scale Used: 0-10 Numeric - Allergies/Home Medications Allergies/Adverse Reactions: Allergies Allergy/AdvReac Type Severity Reaction Status Date / Time No Known Allergies Allergy Verified 01/31/19 13:31 PMH/Surg Hx/FS Hx/Imm Hx Previously Healthy: Yes Other History Of: Negative For: Anticoagulant Therapy - Surgical History Surgical History: None Surgery Procedure, Year, and Place: denies - Family History Known Family History: Positive: None - patient denies relevant FHx, Non- Contributory Negative: Hypertension - Social History Occupation: Employed Full-time Lives: With Family Alcohol Use: Rare Substance Use Type: None Smoking Status (MU): Heavy Every Day Tobacco Smoker Type: Cigarettes Amount Used/How Often: 1 plus pack per day Length of Time of Smoking/Using Tobacco: patient states years Have You Smoked in the Last Year: Yes - Immunization History Most Recent Influenza Vaccination: patient states here in ED approximately 2 weeks ago Most Recent Pneumonia Vaccination: n/a Review of Systems All Other Systems Reviewed And Are Negative: Yes Constitutional: Positive: Negative. Negative: Fever, Chills ENT: Positive: Dental Pain, Sore Throat, Ear Ache - right Respiratory: Positive: Negative Cardiovascular: Positive: Negative Gastrointestinal: Positive: Nausea. Negative: Vomiting Neurological: Positive: Negative Physical Exam Triage Information Reviewed: Yes Appearance: Well-Appearing, No Pain Distress, Well-Nourished Vital Signs: Initial Vital Signs Temp 98 F 01/31/19 13:28 Pulse 90 01/31/19 13:28 Resp 17 01/31/19 13:28 BP 134/96 01/31/19 13:28 Pulse Ox 99 01/31/19 13:28 Vital Signs Reviewed: Yes Eyes: Positive: Conjunctiva Clear ENT: Positive: Hearing grossly normal, Pharynx normal, TMs normal, Dental tenderness, Uvula midline Dental: Positive: Percussion Tenderness @ - tooth #29, 30, Gross Decay/Caries @ - tooth #30, Cellulitis @ - R upper gingiva. Negative: Dental Fracture @, Abscess @, Cervical Lymphadenopathy, Bleeding Neck exam: Normal Neck: Positive: Supple, Nontender, No Lymphadenopathy Respiratory Exam: Normal Respiratory: Positive: Lungs clear, Normal breath sounds, No respiratory distress Cardiovascular Exam: Normal Cardiovascular: Positive: RRR Neurological: Positive: Alert Psychological: Positive: Age Appropriate Behavior Dental Complaint Course/Dx - Course Course Of Treatment: I treated with clindamycin for dental infection. Instructed to take probiotics with it. Also provided viscous lido for pain relief. Instructed to attend appt with dentist and return or go to ED with worsening symptoms. Patient voiced understanding and agreed with treatment plan. - Differential Dx/Diagnosis Provider Diagnosis: Infected dental caries Discharge ED - Sign-Out/Discharge Documenting (check all that apply): Patient Departure All imaging exams completed and their final reports reviewed: No Studies - Discharge Plan Condition: Stable Disposition: HOME Prescriptions: Clindamycin Cap(NF) [Clindamycin Cap 300 mg Cap(NF)] 300 mg PO QID 7 Days #28 cap Lidocaine 2% VISCOUS* [Xylocaine 2% Viscous*] 5 ml .SEE ORDER Q4H PRN #1 btl PRN Reason: Pain - Moderate Patient Education Materials: Toothache (ED) Referrals: No Primary Care Phys,NOPCP [Primary Care Provider] - Additional Instructions: As discussed, take Clindamycin as prescribed for your dental infection. It is recommended that you either take probiotics over the counter or the namibian yogurt while taking this antibiotic, as it can cause severe stomach upset and an infectious diarrhea called C. difficile. Use the lidocaine gel every 4 hours for pain relief. You may use warm salt water gargles to help relieve symptoms. You may use ibuprofen and tylenol as directed for pain and fever relief. It is important that you follow up with your dental appointment on Monday. Go to the emergency room if you experience fever greater than 102, worsening pain, nausea, or vomiting. - Billing Disposition and Condition Condition: STABLE Disposition: Home - Attestation Statements Provider Attestation: Per institutional requirements, I have reviewed the chart, however, I was not consulted specifically or made aware of this patient by the midlevel provider. I did not personally evaluate, interact with , or disposition this patient.
[2019-01-31] MEDS ORDERED: Lidocaine 2% VISCOUS* 15 ML UDC PO ONE (14:15)
== END 2019-01-31 14:27 | disposition home or self-care (01) ==
LOC: UCEAST 13:00
DX: K04.7 Periapical abscess without sinus (principal); H92.01 Otalgia, right ear; J02.9 Acute pharyngitis, unspecified; F17.210 Nicotine dependence, cigarettes, uncomplicated; R07.0 Pain in throat; R11.0 Nausea
CPT/HCPCS: 99212; G0463

== ENCOUNTER 2019-03-08 15:29 | Emergency (ER) | payer MEDICAID ==
[2019-03-08 16:04] VITALS: BP 137/96
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
--- NOTE | 2019-03-09 08:27 | UC ---
- Progress Note Progress Note: neg MRSA staph neg await sensitivity Course/Dx - Diagnoses Provider Diagnoses: Pain, dental Discharge ED - Sign-Out/Discharge Documenting (check all that apply): Post-Discharge Follow Up All imaging exams completed and their final reports reviewed: No Studies - Discharge Plan Condition: Stable Disposition: HOME Prescriptions: Hydrocodone/Acetaminophen [[place] 5-325 Tablet] 1 each PO Q8H PRN #12 tablet MDD 3 PRN Reason: Pain - Severe Referrals: No Primary Care Phys,NOPCP [Primary Care Provider] - Morgan Bates MD [Doctor of Dental Medicine] - As Soon As Possible Additional Instructions: If you develop a fever, shortness of breath, chest pain, new or worsening symptoms - please call your PCP or go to the ED immediately. Your blood pressure was high at todays visit. Please see your primary provider within 4 weeks for recheck and re-evaluation. The oral surgeon's office was closed today. I am unsure if they take your insurance, but I recommend that you call on Monday when they reopen to see if you can schedule an appointment with our referral. We have sent a culture to the lab for further testing. - Billing Disposition and Condition Condition: STABLE Disposition: Home
[2019-03-09 12:47] LABS: HIV 4th Generation Nonreactive (Nonreactive)
--- NOTE | 2019-03-11 07:22 | UC ---
- Progress Note Progress Note: Dental culture wound culture and sensitivity from March 08, 2019 comes back with MRSA and staph aureus both negative. The wound culture shows normal asia 3+. Nursing to call patient ensure that they are able to follow-up with their oral surgeon today. If the patient is unable to follow-up with her oral surgeon and if not improving or worsening we will consider prescribing an antibiotic. Course/Dx - Diagnoses Provider Diagnoses: Pain, dental Discharge ED - Sign-Out/Discharge Documenting (check all that apply): Patient Departure All imaging exams completed and their final reports reviewed: No Studies - Discharge Plan Condition: Stable Disposition: HOME Prescriptions: Hydrocodone/Acetaminophen [[place] 5-325 Tablet] 1 each PO Q8H PRN #12 tablet MDD 3 PRN Reason: Pain - Severe Referrals: No Primary Care Phys,NOPCP [Primary Care Provider] - Morgan Bates MD [Doctor of Dental Medicine] - As Soon As Possible Additional Instructions: If you develop a fever, shortness of breath, chest pain, new or worsening symptoms - please call your PCP or go to the ED immediately. Your blood pressure was high at todays visit. Please see your primary provider within 4 weeks for recheck and re-evaluation. The oral surgeon's office was closed today. I am unsure if they take your insurance, but I recommend that you call on Monday when they reopen to see if you can schedule an appointment with our referral. We have sent a culture to the lab for further testing. - Billing Disposition and Condition Condition: STABLE Disposition: Home
== END 2019-03-08 17:01 | disposition home or self-care (01) ==
LOC: UCEAST 15:29
DX: K08.89 Other specified disorders of teeth and supporting structures (principal); F17.210 Nicotine dependence, cigarettes, uncomplicated
CPT/HCPCS: 36415; 87070; 87205; 87389; 87640; 87641; 99212; G0463